=== PATIENT | female | born 1960 | race Caucasian/White ===

== ENCOUNTER 2020-12-09 15:23 | Outpatient (REF) | payer OTHER, SELFPAY ==
--- NOTE | ~2020-12-09 | XR_ITS ---
EXAMINATION: XR HAND, RIGHT CLINICAL INFORMATION: Right hand pain COMPARISON: Previous x-ray February 2017 TECHNIQUE: PA, lateral, and oblique views of the right hand. FINDINGS: Bone alignment is normal. No fracture or dislocation is seen. There is evidence of arthritis at the IP joints and first INTERMEDIATE joint with joint space narrowing and osteophyte formation. There are also small osteophytes at the fifth and first MCP joints. This is increased compared to February 2017 exam. Soft tissues are unremarkable. XR/XR hand RT min 3V IMPRESSION: Increasing osteoarthritis.
== END 2020-12-09 15:24 | disposition home or self-care (01) ==
LOC: HO.HOSX 15:23
PROVIDERS: Visit Provider Orthopaedic Surgery
DX: M79.641 Pain in right hand (principal); M19.041 Primary osteoarthritis, right hand; M18.11 Unilateral primary osteoarthritis of first carpometacarpal joint, right hand
CPT/HCPCS: 20600; 73130; J1020

== ENCOUNTER 2023-10-25 12:04 | Outpatient (REF) | payer OTHER, SELFPAY ==
--- NOTE | ~2023-10-25 | XR_ITS ---
EXAMINATION: XR CHEST CLINICAL INFORMATION: Chest pain. COMPARISON: Most recent chest CT dated 02/15/2015. TECHNIQUE: 2 views of the chest were obtained. FINDINGS: The lungs are clear. The cardiomediastinal silhouette is normal in size. There is no pleural effusion or pneumothorax. No acute osseous abnormality. XR/XR chest 2V IMPRESSION: No acute cardiopulmonary findings.
== END 2023-10-25 12:05 | disposition home or self-care (01) ==
LOC: HO.XRAY 12:04
PROVIDERS: PCP Internal Medicine Medical Oncology; Visit Provider Internal Medicine Medical Oncology
DX: R07.9 Chest pain, unspecified (principal)
CPT/HCPCS: 71046

== ENCOUNTER 2025-03-23 16:00 | Outpatient (REF) | payer OTHER, SELFPAY ==
--- OUTSIDE RECORDS SUMMARY | 2025-03-05 09:19 | XMS_ITS ---
Author Organization Benja Alicea III, MD Address [address] [place] [address] [place] [address] Care Team Providers Care Tile Layer Supervisor Name Role Phone Dr. Benja Alicea III Primary Care Provider [phone] REASON FOR VISIT Rx Request Medications Medication SIG (Take, Route, Fr equency, Duration) Notes Start Date End Date Status Wellbutrin SR 150 MG 1 tablet in the mor sridhar Orally Once a day for 90 days Active Social History Sex Assigned At : Social History Observation Description Sex Assigned At Female Encounters Encounter Location Date Provider Diagnosis Benja Alicea III, MD [address] [place] [address] [place] [address] 03/05/2025 Benja Alicea Lumbar radiculopathy M54.16 Assessments Encounter Date Diagnosis (ICD Code) Assessment Notes Treat ment Notes Treatment Clinical Notes 03/05/2025 Lumbar radiculopathy (ICD-10 - M54.16) She has undergone a second surgical procedure and the pain is improved. The pain is currently controlled and she is able to complete all of the tasks of daily life. Plan Of Treatment Medication Medication Name Sig Start Date Stop Date Notes Wellbutrin SR 150 MG 1 tablet in the mor sridhar Orally Once a day for 90 days Next Appt Details Provider Name:Benja Alicea , 07/03/2025 03:30:00 PM, [address] [place] [address] [place], [address], Progress Notes * Rodolfo DESOUZARalfB:1960 (64 yo F)Acc No.[id number]:03/05/2025 Patient: Bre GUERRA :1960 A ge:64 Y S ex:Female Address:[address] [place] [phone] * Refills Refill Wellbutrin SR Tablet Extended Release 12 Hour, 150 MG, Orally, 90, 1 tablet in the morning, Once a day, 90 days, Refills=3 * true * Date: Generated for Delmar cody/Genaro/Jessicaitting on: 0 03/23/2025 04:10 PM EDT
--- OUTSIDE RECORDS SUMMARY | 2025-03-07 09:22 | XMS_ITS ---
Author Organization Benja Alicea III, MD Address [address] [place] [address] [place] [address] Care Team Providers Care Electrical Engineering Professor Name Role Phone Dr. Benja Alicea III Primary Care Provider [phone] REASON FOR VISIT pt needs Wellbutrin XL Medications Medication SIG (Take, Route, Fr equency, Duration) Notes Start Date End Date Status Wellbutrin XL 150 MG 1 tablet in the mor sridhar Orally Once a day for 90 days 03/07/2025 Active Social History Sex Assigned At : Social History Observation Description Sex Assigned At Female Encounters Encounter Location Date Provider Diagnosis Benja Alicea III, MD [address] [place] [address] [place] [address] 03/07/2025 Benja Alicea Lumbar radiculopathy M54.16 Assessments Encounter Date Diagnosis (ICD Code) Assessment Notes Treat ment Notes Treatment Clinical Notes 03/07/2025 Lumbar radiculopathy (ICD-10 - M54.16) She has undergone a second surgical procedure and the pain is improved. The pain is currently controlled and she is able to complete all of the tasks of daily life. Plan Of Treatment Medication Medication Name Sig Start Date Stop Date Notes Wellbutrin SR 150 MG 1 tablet in the mor sridhar Orally Once a day Wellbutrin XL 150 MG 1 tablet in the mor sridhar Orally Once a day for 90 days 03/07/2025 Next Appt Details Provider Name:Benja Alicea , 07/03/2025 03:30:00 PM, [address] [place] [address] [address], [place], [address], Progress Notes * Sanjana DESOUZAFrancisca:1960 (64 yo F)Acc No.[id number]:03/07/2025 Patient: Bre GUERRA :1960 A ge:64 Y S ex:Female Address:[address] [place] [phone] * Refills Stop Wellbutrin SR Tablet Extended Release 12 Hour, 150 MG, Orally, 1 tablet in the morning, Once a day Start Wellbutrin XL Tablet Extended Release 24 Hour, 150 MG, Orally, 90 Tablet, 1 tablet in the morning, Once a day, 90 days, Refills=3 * true * Date: Generated for Delmar cody/Genaro/Jessicaitting on: 0 03/23/2025 04:10 PM EDT
--- OUTSIDE RECORDS SUMMARY | 2025-03-13 12:10 | XMS_ITS ---
Author Organization Benja Alicea III, MD Address [address] [place] [address] [place] [id number] Care Team Providers Care Cloth Neutralizer Name Role Phone Dr. Benja Alicea III Primary Care Provider [phone] REASON FOR VISIT wants Zepbound again Medications Medication SIG (Take, Route, Frequency, Duration) Notes Start Date End Date Status Zepbound 5 MG/0.5ML 0.5 mL Subcutaneous once a week for 30 days DX: obesity E 66.3 Auth approval from [facility] from 03/15/2025- 026 03/19/2025 03/14/2026 Active Mounjaro 5 MG/0.5ML 0.5ml once a week Subcutaneous once a week for 28 days 03/19/2025 02/18/2026 Active Social History Sex Assigned At : Social History Observation Description Sex Assigned At Female Encounters Encounter Location Date Provider Diagnosis Benja Alicea III, MD [address] [place] [address] [place] [id number] 03/13/2025 Benja Alicea Overweight E66.3 and Essential hypertension I10 Assessments Encounter Date Diagnosis (ICD Code) Assessment Notes Treat ment Notes Treatment Clinical Notes 03/13/2025 Overweight (ICD-10 - E66.3) She is losing weight steadily. No increase in the dose of zepbound was necessary today. But due to insurance she will be changed over to Wegovy at this time . She will be monitored closely. Her body mass index is now in the upper normal range. 03/13/2025 Essential hypertension (ICD-10 - I10) Her blood pressure today is 134/71 and no change in her regimen is needed. Plan Of Treatment Medication Medication Name Sig Start Date Stop Date Notes Wegovy 0.25 MG/0.5ML 0.5 mL Subcutaneous once a week 12/25/2024 04/24/2025 Zepbound 5 MG/0.5ML 0.5 mL Subcutaneous once a week for 30 days 03/19/2025 03/14/2026 DX: obesity E 66 .3 Auth approval from [facility] from 03/15/2025-03/15/2026 Mounjaro 5 MG/0.5ML 0.5ml once a week Subcutaneous once a week for 28 days 03/19/2025 02/18/2026 Next Appt Details Provider Name:Benja Lynsey Alicea , 07/03/2025 03:30:00 PM, [address] [place] [address] , [place] [address], [place], [address], Progress Notes * MARIAMASanjanaB:1960 (64 yo F)Acc No.[id number]:03/13/2025 Patient: Bre GUERRA :1960 A ge:64 Y S ex:Female Address:[address] [place] [phone] * Refills Stop Wegovy Solution Auto-injector, 0.25 MG/0.5ML, Subcutaneous, 0.5 mL, once a week unable to fill Zepbound Solution, 5 MG/0.5ML, Subcutaneous, 2 Milliliter, 0.5 mL, once a week, 30 days, Refills=11 Start Mounjaro Solution Auto-injector, 5 MG/0.5ML, Subcutaneous, 2 Milliliter, 0.5ml once a week, once a week, 28 days, Refills=11 * true * Date: Generated for Delmar cody/Genaro/Jessicaitting on: 0 03/23/2025 04:09 PM EDT
--- OUTSIDE RECORDS SUMMARY | 2025-03-19 07:25 | XMS_ITS ---
Author Organization Benja Alicea III, MD Address [address] [place] [address] [place] [address] Care Team Providers Care Enlisted Advisor Name Role Phone Dr. Benja Alicea III Primary Care Provider REASON FOR VISIT Needs call back from Social History Sex Assigned At : Social History Observation Description Sex Assigned At Female Encounters Encounter Location Date Provider Diagnosis Benja Alicea III, MD [address] [place] [address] [place] [address] 03/19/2025 Benja Alicea Plan Of Treatment Next Appt Details Provider Name:Benja Alicea , 07/03/2025 03:30:00 PM, [address] [place] [address] [place], [address], Progress Notes * Sanjana DESOUZAB:1960 (64 yo F)Acc No.[id number]:03/19/2025 Patient: Bre GUERRA :1960 A ge:64 Y S ex:Female Address:[address] [place], [place] [address] [address] * true * Date: Generated for Printi ng/Faxing/eTransmitting on: 0 03/23/2025 04:10 PM EDT
--- OUTSIDE RECORDS SUMMARY | 2025-03-22 10:39 | XMS_ITS ---
Author Organization Benja Alicea III, MD Address [address] [place] [address] [place] [address] Care Team Providers Care Rounder Hand Name Role Phone Dr. Benja Alicea III Primary Care Provider REASON FOR VISIT Rx request Medications Medication SIG (Take, Route, Frequency, Duration) Notes Start Date End Date Status Wellbutrin XL 150 MG 1 tablet in the morning Orally Once a day for 90 days 03/07/2025 Active Minoxidil 2.5 MG TAKE 1 TABLET BY MOUTH TWICE DAILY for 30 Active Zepbound 5 MG/0.5ML 0.5 mL Subcutaneous once a week for 30 days unable to fill due to insurance 03/19/2025 03/14/2026 Not-Taking lamoTRIgine 200 MG 1 tablet Orally Once a day for 90 days Active Albuterol Sulfate HFA 108 (90 Base) MCG/ACT two puffs Q 4 hours prn wheezing Inhalation every 4 hrs for 30 days 03/22/2025 Active Ciprofloxacin HCl 500 MG 1 tablet Orally twice a day for 10 days 03/22/2025 04/01/2025 Active Metoprolol Succinate ER 100 MG 1 tablet Orally Once a day Active Linzess 290 MCG TAKE 1 CAPSULE BY MOUTH DAILY Oral Active Trulance 3 MG TAKE 1 TABLET BY MOUTH DAILY Oral Active Vilazodone HCl 20 MG 1 tablet with food Orally Once a day 11/24/2024 Active Pantoprazole Sodium 40 MG TAKE 1 TABLET BY MOUTH TWICE DAILY Active Atorvastatin Calcium 40 MG TAKE 1 TABLET BY MOUTH DAILY Active Trulance 3 MG 1 tablet Orally Once a day 09/08/2024 Active tiZANidine HCl 2 MG 1 tablet Orally every 6 hrs as needed 04/18/2024 Active Mounjaro 5 MG/0.5ML 0.5ml once a week Subcutaneous once a week for 28 days 03/19/2025 02/18/2026 Active Social History Sex Assigned At : Social History Observation Description Sex Assigned At Female Encounters Encounter Location Date Provider Diagnosis Benja Alicea III, MD [address] [place] [address] [address] [place] [address] 03/22/2025 Benja Alicea Chronic cough R05.3 Assessments Encounter Date Diagnosis (ICD Code) Assessment Notes Treatment Notes Treatment Clinical Notes 03/22/2025 Chronic cough (ICD-10 - R05.3) Plan Of Treatment Medication Medication Name Sig Start Date Stop Date Notes Linzess 290 MCG TAKE 1 CAPSULE BY MO UTH DAILY Albuterol Sulfate HFA 108 (9 0 Base) MCG/ACT two puffs Q 4 hours prn wheezing Inhalation every 4 hrs for 30 days 03/22/2025 Ciprofloxacin HCl 500 MG 1 tablet Orally twice a day for 10 days 03/22/2025 04/01/2025 Pending Test Test Name Order Date XR CHEST 2 VIEW PA & LAT 03/22/2025 Next Appt Details Provider Name:Benja Alicea , 07/03/2025 03:30:00 PM, [address] [place] [address] [address], [place], [address], Progress Notes * Luis DESOUZA:1960 (64 yo F)Acc No.[id number]:03/22/2025 Patient: Chele MIGUELINAROHITHBre :1960 A ge:64 Y S ex:Female Address:[address] [place] [phone] * Refills Start Ciprofloxacin HCl Tablet, 500 MG, Orally, 20 Tablet, 1 tablet, twice a day, 10 days, Refills=0 Start Albuterol Sulfate HFA Aerosol Solution, 108 (90 Base) MCG/ACT, Inhalation, 6.7 Inhaler, two puffs Q 4 hours prn wheezing, every 4 hrs, 30 days, Refills=1 Stop Linzess Capsule, 290 MCG, TAKE 1 CAPSULE BY MOUTH DAILY Subjective: * Chief Complaints: * R x request * Medical History: * Surgical History: * Hospitalization/Major Diagno stic Procedure: * Medications: T akingVilazodone HCl 20 MG Tablet 1 tablet with food Orally Once a day Pantoprazole Sodium 40 MG Tablet Delayed Release TAKE 1 TABLET BY MOUTH TWICE DAILY Trulance 3 MG Tablet 1 tablet Orally Once a day tiZANidine HCl 2 MG Tablet 1 tablet Orally every 6 hrs as needed Atorvastatin Calcium 40 MG Tablet TAKE 1 TABLET BY MOUTH DAILY Metoprolol Succinate ER 100 MG Tablet Extended Release 24 Hour 1 tablet Orally Once a day Linzess 290 MCG Capsule TAKE 1 CAPSULE BY MOUTH DAILY Oral Trulance 3 MG Tablet TAKE 1 TABLET BY MOUTH DAILY Oral lamoTRIgine 200 MG Tablet 1 tablet Orally Once a day Wellbutrin XL 150 MG Tablet Extended Release 24 Hour 1 tablet in the morning Orally Once a day Minoxidil 2.5 MG Tablet TAKE 1 TABLET BY MOUTH TWICE DAILY Mounjaro 5 MG/0.5ML Solution Auto-injector 0.5ml once a week Subcutaneous once a week , stop date 02/18/2026Taking Vilazodone HCl 20 MG Tablet 1 tablet with food Orally Once a day Taking Pantoprazole Sodium 40 MG Tablet Delayed Release TAKE 1 TABLET BY MOUTH TWICE DAILY Taking Trulance 3 MG Tablet 1 tablet Orally Once a day Taking tiZANidine HCl 2 MG Tablet 1 tablet Orally every 6 hrs as needed Taking Atorvastatin Calcium 40 MG Tablet TAKE 1 TABLET BY MOUTH DAILY Taking Metoprolol Succinate ER 100 MG Tablet Extended Release 24 Hour 1 tablet Orally Once a day Taking Linzess 290 MCG Capsule TAKE 1 CAPSULE BY MOUTH DAILY Oral Taking Trulance 3 MG Tablet TAKE 1 TABLET BY MOUTH DAILY Oral Taking lamoTRIgine 200 MG Tablet 1 tablet Orally Once a day Taking Wellbutrin XL 150 MG Tablet Extended Release 24 Hour 1 tablet in the morning Orally Once a day Taking Minoxidil 2.5 MG Tablet TAKE 1 TABLET BY MOUTH TWICE DAILY Taking Mounjaro 5 MG/0.5ML Solution Auto-injector 0.5ml once a week Subcutaneous once a week , stop date 02/18/2026Not-Taking/PRNZepbound 5 MG/0.5ML Solution 0.5 mL Subcutaneous once a week , stop date 03/14/2026, Notes to Pharmacist: unable to fill due to insuranceNot-Taking/PRN Zepbound 5 MG/0.5ML Solution 0.5 mL Subcutaneous once a week , stop date 03/14/2026, Notes to Pharmacist: unable to fill due to insuranceDiscontinuedLinzess 290 MCG Capsule TAKE 1 CAPSULE BY MOUTH DAILY Discontinued Linzess 290 MCG Capsule TAKE 1 CAPSULE BY MOUTH DAILY Objective: * Vitals: * Physical Examination: Assessment: * Assessment: 1. C hronic cough - R05.3 Plan: * Treatment: 2. O thers Start Ciprofloxacin HCl Tablet, 500 MG, 1 tablet, Orally, twice a day, 10 days, 20 Tablet, Refills 0; S tart Albuterol Sulfate HFA Aerosol Solution, 108 (90 Base) MCG/ACT, two puffs Q 4 hours prn wheezing, Inhalation, every 4 hrs, 30 days, 6.7 Inhaler, Refills 1; S top Linzess Capsule, 290 MCG, TAKE 1 CAPSULE BY MOUTH DAILY. * Procedure Codes: * true * Date: Generated for Delmar cody/Genaro/Jessicaitting on: 0 03/23/2025 04:10 PM EDT
--- NOTE | ~2025-03-23 | XR_ITS ---
EXAMINATION: XR CHEST CLINICAL INFORMATION: CHRONIC COUGH COMPARISON: 10/25/2023 TECHNIQUE: 2 views of the chest were obtained. FINDINGS: The cardiac, hilar, and mediastinal contours are normal. The lungs are clear bilaterally. There is no pneumothorax or pleural effusion. There is no focal osseous or soft tissue abnormality. Surgical anchor in the right humeral head. Mild degenerative changes throughout the spine. XR/XR chest 2V IMPRESSION: No active pulmonary disease. Electronically signed by: Jerry Vallejo MD 03/23/2025 04:32 PM EDT
--- OUTSIDE RECORDS SUMMARY | 2025-03-23 16:10 | XMS_ITS | Encounter Summary ---
Author Organization [facility] Address [address] [place] [address] Phone Care Team Providers Care Claim Benefit Specialist Name Role Phone Benja Alicea MD Primary Care Provider [phone] Reason for Referral * Consultation (Within 1 month) - Closed Specialty Diagnoses / Procedures Referred By Contac t Referred To Contact Rheumatology Diagnoses Pain of right thumb System, Provider Not In, PhD [address] [address] Referral ID Status Reason Start Date Expiration Date Visits Re quested Visits Authorized [id number] Closed 03/22/2017 03/23/2018 99 99 Encounter Details Date Type Department Care Team (Latest Contact Info) Description 03/22/2017 Transcribe Orders [facility] Rheumatology [address], [address], [address] [place] [address] Maycol Em MD [address] [place] [address] Drive [address] [place] [address] Pain of right thumb (Primary Dx) Social History Tobacco Use Types Packs/Day Years Used Date Smoking Tobacco: Never Comments Unknown Sex and Gender Information Value Date Recorded Sex Assigned at Not on file Legal Sex Female 7:18 PM EST Gender Identity Not on file Sexual Orientation Not on file documented as of this encounter Plan of Treatment Scheduled Referrals Name Type Priority Associated Diagnoses Order Schedule Ambulatory referral to [facility] Rheumatology Outpatient Referral Routine Pain of right thumb Ordered: 03/22/2017 documented as of this encounter Visit Diagnoses Diagnosis Pain of right thumb- Primary documented in this encounter Care Teams Claim Benefit Specialist Relationship Specialty Start Date End Date Benja Alicea MD [address] [place] [address] [place] [address] PCP - General 11/06/14 documented as of this encounter Additional Source Comments The information contained in this document represents components of the legal health record. It is not the complete legal health record.[facility]
--- OUTSIDE RECORDS SUMMARY | 2025-03-23 16:10 | XMS_ITS | Patient Health Record ---
Author Organization Benja Alicea III, MD Address [address] [place] [address] [place] [address] Care Team Providers Care Conveyor Monitor Name Role Phone Dr. Benja Alicea III Primary Care Provider Allergies Allergen (clinical drug ingredient) Drug/Non Drug Allergy documented on EMR Reaction Allergy Type Onset Date Status amoxicillin Amoxicillin Unknown Drug Allergy Act edna acetaminophen / oxycodone Percocet Unknown Drug Allergy Active Results Component Value Reference Range Notes URINE DIP STICK Reviewed date:03/28/2024 04:35:35 PM Interpretation: Performing Lab: Notes/Report: SG 1.010 1.005 - 1.025 pH 6.0 5.0 - 9.0 AVINASH 70+ Negative - NIT Negative Negative - PRO 15 Negative - Trace GLU Negative Negative - KET 5 Negative - UBG 0.2 0.1 - 1.8 KENNETH Negative 0.2 - 1.3 BLD Positive Negative - Menstrating No Reason For Referral No Information Medications Medication SIG (Take, Route, Frequency, Duration) [...] fill due to insurance 03/19/2025 03/14/2026 Not-Taking Vilazodone HCl 20 MG 1 tablet with food Orally Once a day 11/24/2024 Active Mounjaro 5 MG/0.5ML 0.5ml once a week Subcutaneous once a week for 28 days 03/19/2025 02/18/2026 Active Pantoprazole Sodium 40 MG TAKE 1 TABLET BY MOUTH TWICE DAILY Active Ciprofloxacin HCl 500 MG 1 tablet Orally twice a day for 10 days 03/22/2025 04/01/2025 Active Metoprolol Succinate ER 100 MG 1 tablet Orally Once a day Active Linzess 290 MCG TAKE 1 CAPSULE BY MOUTH DAILY Oral Active Trulance 3 MG TAKE 1 TABLET BY MOUTH DAILY Oral Active lamoTRIgine 200 MG 1 tablet Orally Once a day for 90 days Active Trulance 3 MG 1 tablet Orally Once a day 09/08/2024 Active tiZANidine HCl 2 MG 1 tablet Orally every 6 hrs as needed 04/18/2024 Active Albuterol Sulfate HFA 108 (90 Base) MCG/ACT two puffs Q 4 hours prn wheezing Inhalation every 4 hrs for 30 days 03/22/2025 Active Atorvastatin Calcium 40 MG TAKE 1 TABLET BY MOUTH DAILY Active Social History Tobacco Use: Social History Observation Description Date Details (start date - stop date) Never Smoker NA - NA Sex Assigned At : Social History Observation Description Sex Assigned At Female Tobacco Use/Smoking Question Answer Notes Patient is a nonsmoker Additional Findings: Tobacco Non-User Aggressive non-smoker Alcohol Screen Question Answer Notes Did you have a drink contain ing alcohol in the past year? Yes How often did you have a dri nk containing alcohol in the past year? 4 or more times a week (4 points) How many drinks did you have on a typical day when you were drinking in the past year? 1 or 2 drinks (0 point) How often did you have 6 or more drinks on one occasion in the past year? Never (0 point) Points 4 Interpretation Positive Problems Problem Type SNOMED Code ICD Code Onset Dates Problem Status W/U Status Risk Notes Problem 61773331 Hyperlipidemia (E78.5) Active confirmed She was continued on her current regimen. Comprehensive blood work fasting lipid profile has been ordered. Problem 468446050 Overweight (E66.3) Active confirmed She is losing weight steadily. No increase in the dose of zepbound was necessary today. But due to insurance she will be changed over to Wegovy at this time . She will be monitored closely. Her body mass index is now in the upper normal range. Problem 095168255 Lumbar radiculopathy (M54.16) Active confirmed She has undergone a second surgical procedure and the pain is improved. The pain is currently controlled and she is able to complete all of the tasks of daily life. Problem 02215508 Anxiety (F41.9) Active confirmed This has improved substantially. She is sleeping better and is back at work. Problem 25726221 Essential hypertension (I10) Active confirmed Her blood pressure today is 134/71 and no change in her regimen is needed. Problem 873649889 Rosacea (L71.9) Active confirmed She was given a course of topical brimonidine Problem 05854105 Depressive disorder, not elsewhere classified (F32.9) Active confirmed The trazodone has been ineffective lately. I have changed her to venlafaxine. She is also taking lamotrigine. Problem Sleep apnea (99396634) Sleep apnea (G47.30) Active confirmed Her sleep study was reviewed. She no longer complains of daytime somnolence. She is now using CPAP and seems not to need it Problem 939699489 Cervical spondylosis without myelopathy (M47.812) Active confirmed Neck pain is mild and intermittent and does not affect her ability to conduct daily life. Problem 656480271 Hair loss (L65.9) Active confirmed She is quite happy with the results of the oral minoxidil which was no change today. Her blood pressure has been stable. Problem 61073929 Esophagitis (K20.90) Active confirmed She will continue on the current regimen for another week until we have a follow-up visit. She is improving. Problem 649279657 Weight loss counseling, encounter for (Z71.3) Active confirmed She was continued on the injections once a week. Her body mass index is in the upper normal range and she will soon be able to stop this medication. Vital Signs Heart Rate 86 /min 12/25/2024 Temperature 98.4 degrees Fahrenheit 12/25/2024 Blood pressure diastolic 81 mm Hg 12/25/2024 Height 63 in 12/25/2024 Blood pressure systolic 139 mm Hg 12/25/2024 Weight 127 lbs 12/25/2024 BMI 22.49 kg/m2 12/25/2024 Encounters Encounter Location Date Provider Diagnosis Benja Alicea III, MD [address] [place] [address] [place] [address] 09/01/2024 Benja Alicea Lumbar radiculopathy M54.16 ; Weight loss counseling, encounter for Z71.3 ; Hyperlipidemia E78.5 ; Overweight E66.3 ; Depressive disorder, not elsewhere classified F32.9 and Cervical spondylosis without myelopathy M47.812 Benja Alicea III, MD [address] [place] [address] 03/28/2024 Benja Alicea Lumbar radiculopathy M54.16 ; Hematuria R31.9 ; Overweight E66.3 ; Cervical spondylosis without myelopathy M47.812 ; Sleep apnea G47.30 and Hiatal hernia K44.9 Benja Alicea III, MD [address] [place] [address] [place] [address] 05/10/2024 Benja [place]erne Lumbar radiculopathy M54.16 ; Overweight E66.3 ; Essential hypertension I10 and Sleep apnea G47.30 Benja Alicea III, MD [address] [place] [address] 06/08/2024 Benja [place] Lumbar radiculopathy M54.16 ; Essential hypertension I10 ; Hyperlipidemia E78.5 ; Depressive disorder, not elsewhere classified F32.9 and Weight loss counseling, encounter for Z71.3 Benja Alicea III, MD [address] [place] [address] [place] [address] 07/18/2024 Benja [place] Lumbar radiculopathy M54.16 ; Hair loss L65.9 ; Sleep apnea G47.30 ; Essential hypertension I10 and Anxiety F41.9 Benja Alicea III, MD [address] [place] [address] 10/20/2024 Benja Alicea Lumbar radiculopathy M54.16 ; Hyperlipidemia E78.5 ; Hair loss L65.9 ; Weight loss R63.4 ; Sleep apnea G47.30 and Depressive disorder, not elsewhere classified F32.9 Benja Alicea III, MD [address] [place] [address] [place] [address] 12/25/2024 Benja [place] Lumbar radiculopathy M54.16 ; Essential hypertension I10 ; Overweight E66.3 ; Hyperlipidemia E78.5 and Sleep apnea G47.30 Benja Alicea III, MD [address] [place] [address] 02/22/2025 Benja Alicea III, MD [address] [facility] [place] [address] 03/29/2024 Benja Alicea III, MD [address] [facility] [place] [address] 04/04/2024 Benja Alicea III, MD [address] [facility] [place] [address] 04/18/2024 Benja Alicea III, MD [address] [facility] [place] [address] 04/18/2024 Benja Alicea III, MD [address] [facility] [place] [address] 06/07/2024 Benja Alicea III, MD [address] [facility] [place] [address] 06/13/2024 Benja Alicea III, MD [address] [facility] [place] [address] 07/18/2024 Benja Alicea III, MD [address] [facility] [place] [address] 07/24/2024 Benja Alicea III, MD [address] [facility] [place] [address] 08/08/2024 Benja Alicea III, MD [address] [facility] [place] [address] 08/22/2024 Benja Alicea III, MD [address] [facility] [place] [address] 08/22/2024 Benja Alicea III, MD [address] [facility] [place] [address] 09/08/2024 Benja Alicea III, MD [address] [facility] [place] [address] 09/08/2024 Benja Alicea III, MD [address] [place] [address] 09/19/2024 Benja Alicea III, MD [address] [place] [address] [place] [address] 09/22/2024 Benja Alicea III, MD [address] [place] [address] [place] [address] 10/12/2024 Benja Alicea III, MD [address] [place] [address] [place] [address] 10/30/2024 Benja Alicea III, MD [address] [place] [address] [place] [address] 11/23/2024 Benja Alicea III, MD [address] [place] [address] [place] [address] 11/24/2024 Benja Alicea III, MD [address] [place] [address] [place] [address] 02/06/2025 Benja Alicea III, MD [address] [place] [address] [place] [address] 03/05/2025 Benja Alicea Lumbar radiculopathy M54.16 Benja Alicea III, MD [address] [place] [address] [place] [address] 03/07/2025 Benja Alicea Lumbar radiculopathy M54.16 Benja Alicea III, MD [address] [place] [address] [place] [address] 03/13/2025 Benja Alicea Overweight E66.3 and Essential hypertension I10 Benja Alicea III, MD [address] [place] [address] [place] [address] 03/19/2025 Benja Alicea III, MD [address] [place] [address] [place] [address] 03/22/2025 Benja Alicea Chronic cough R05.3 Assessments Encounter Date Diagnosis (ICD Code) Assessment Notes Treat ment Notes Treatment Clinical Notes 09/01/2024 Lumbar radiculopathy (ICD-10 - M54.16) She has undergone a second surgical procedure and the pain is improved but she is fatigued. The pain is currently controlled and she is able to complete all of the tasks of daily life. 09/01/2024 Weight loss counseling, encounter for (ICD-10 - Z71.3) She was continued on the injections once a week. Her body mass index is in the upper normal range and she will soon be able to stop this medication. 03/28/2024 Hematuria (ICD-10 - R31.9) She is being evaluated by urology. She will have urine cytology and cystoscopy. Results of the CAT scan will be obtained. 03/28/2024 Lumbar radiculopathy (ICD-10 - M54.16) She has undergone a second surgical procedure and the pain is improved but she is fatigued. The pain is currently controlled and she is able to complete all of the tasks of daily life. 05/10/2024 Overweight (ICD-10 - E66.3) She is losing weight steadily. No increase in the dose of zepbound was necessary today. She will be monitored closely. Her body mass index is now in the upper normal range. 05/10/2024 Lumbar radiculopathy (ICD-10 - M54.16) She has undergone a second surgical procedure and the pain is improved but she is fatigued. The pain is currently controlled and she is able to complete all of the tasks of daily life. 06/08/2024 Lumbar radiculopathy (ICD-10 - M54.16) She has undergone a second surgical procedure and the pain is improved but she is fatigued. The pain is currently controlled and she is able to complete all of the tasks of daily life. 06/08/2024 Essential hypertension (ICD-10 - I10) Her blood pressure today is 134/71 and no change in her regimen is needed. 07/18/2024 Lumbar radiculopathy (ICD-10 - M54.16) She has undergone a second surgical procedure and the pain is improved but she is fatigued. The pain is currently controlled and she is able to complete all of the tasks of daily life. 07/18/2024 Hair loss (ICD-10 - L65.9) Her concern today was that she is losing hair. She is seeing here in the same kin on the bottom of the bathtub. Examining her scalp today the follicle count seem normal. Alopecia was not present normal bald spots. There are no areas of Liotta. I have discussed with her the use of minoxidil. Blood work will be done to check her thyroid function. 10/20/2024 Hyperlipidemia (ICD-10 - E78.5) She was continued on her current regimen. Comprehensive blood work fasting lipid profile has been ordered. 10/20/2024 Lumbar radiculopathy (ICD-10 - M54.16) She has undergone a second surgical procedure and the pain is improved. The pain is currently controlled and she is able to complete all of the tasks of daily life. 12/25/2024 Lumbar radiculopathy (ICD-10 - M54.16) She has undergone a second surgical procedure and the pain is improved. The pain is currently controlled and she is able to complete all of the tasks of daily life. 12/25/2024 Essential hypertension (ICD-10 - I10) Her blood pressure today is 134/71 and no change in her regimen is needed. 03/05/2025 Lumbar radiculopathy (ICD-10 - M54.16) She has undergone a second surgical procedure and the pain is improved. The pain is currently controlled and she is able to complete all of the tasks of daily life. 03/07/2025 Lumbar radiculopathy (ICD-10 - M54.16) She has undergone a second surgical procedure and the pain is improved. The pain is currently controlled and she is able to complete all of the tasks of daily life. 03/13/2025 Overweight (ICD-10 - E66.3) She is losing weight steadily. No increase in the dose of zepbound was necessary today. But due to insurance she will be changed over to Wegovy at this time . She will be monitored closely. Her body mass index is now in the upper normal range. 03/22/2025 Chronic cough (ICD-1 0 - R05.3) 09/01/2024 Hyperlipidemia (ICD-10 - E78.5) Comprehensive blood work is pending at this time and will be reviewed when it is available. 03/28/2024 Overweight (ICD-10 - E66.3) She is losing weight steadily. No increase in the dose of zepbound was necessary today. She will be monitored closely.She has lost 14 pounds in her body mass index is in the overweight range. 05/10/2024 Essential hypertension (ICD-10 - I10) Her blood pressure today is 134/71 and no change in her regimen is needed. 06/08/2024 Hyperlipidemia (ICD-10 - E78.5) Comprehensive blood work is pending at this time and will be reviewed when it is available. 07/18/2024 Sleep apnea (ICD-10 - G47.30) Her sleep study was reviewed. She no longer complains of daytime somnolence. She is now using CPAP and seems not to need it 10/20/2024 Hair loss (ICD-10 - L65.9) She is quite happy with the results of the oral minoxidil which was no change today. Her blood pressure has been stable. 12/25/2024 Overweight (ICD-10 - E66.3) She is losing [...] no change in her regimen is needed. 09/01/2024 Overweight (ICD-10 - E66.3) She is losing weight steadily. No increase in the dose of zepbound was necessary today. She will be monitored closely. Her body mass index is now in the upper normal range. 03/28/2024 Cervical spondylosis without myelopathy (ICD-10 - M47.812) Neck pain is mild and intermittent and does not affect her ability to conduct daily life. 05/10/2024 Sleep apnea (ICD-10 - G47.30) Her sleep study was reviewed. She no longer complains of daytime somnolence. She is now using CPAP and seems not to need it 06/08/2024 Depressive disorder, not elsewhere classified (ICD-10 - F32.9) The trazodone has been ineffective lately. I have changed her to venlafaxine. She is also taking lamotrigine. 07/18/2024 Essential hypertension (ICD-10 - I10) Her blood pressure today is 134/71 and no change in her regimen is needed. 10/20/2024 Weight loss (ICD-10 - R63.4) She now weighs 127 pounds, body mass index 22.49. He is using Zepbound. We began to discuss how to withdraw the medication from her regimen. 12/25/2024 Hyperlipidemia (ICD-10 - E78.5) She was continued on her current regimen. Comprehensive blood work fasting lipid profile has been ordered. 09/01/2024 Depressive disorder, not elsewhere classified (ICD-10 - F32.9) The trazodone has been ineffective lately. I have changed her to venlafaxine. She is also taking lamotrigine. 03/28/2024 Sleep apnea (ICD-10 - G47.30) Her sleep study was reviewed. She no longer complains of daytime somnolence. She is now using CPAP and seems not to need it 06/08/2024 Weight loss counseling, encounter for (ICD-10 - Z71.3) She will continue on the current dose of medication for a couple of months and then we will discuss terminating. 07/18/2024 Anxiety (ICD-10 - F41.9) This has improved substantially. She is sleeping better and is back at work. 10/20/2024 Sleep apnea (ICD-10 - G47.30) Her sleep study was reviewed. She no longer complains of daytime somnolence. She is now using CPAP and seems not to need it 12/25/2024 Sleep apnea (ICD-10 - G47.30) Her sleep study was reviewed. She no longer complains of daytime somnolence. She is now using CPAP and seems not to need it 09/01/2024 Cervical spondylosis without myelopathy (ICD-10 - M47.812) Neck pain is mild and intermittent and does not affect her ability to conduct daily life. 03/28/2024 Hiatal hernia (ICD-1 0 - K44.9) Control of her epigastric discomfort and reflux symptoms is not yet adequate. She is interested in a surgical solution 10/20/2024 Depressive disorder, not elsewhere classified (ICD-10 - F32.9) The trazodone has been ineffective lately. I have changed her to venlafaxine. She is also taking lamotrigine. Plan Of Treatment Pending Test Test Name Order Date PROFILE, FASTING (COMPREHENSIVE METABOLI C) 10/20/2024 PROFILE, FASTING (COMPREHENSIVE METABOLI C) 09/09/2020 PROFILE, FASTING (COMPREHENSIVE METABOLI C) 10/18/2019 PROFILE, FASTING (COMPREHENSIVE METABOLI C) 08/15/2021 PROFILE, FASTING (COMPREHENSIVE METABOLI C) 01/10/2021 PROFILE, FASTING (COMPREHENSIVE METABOLI C) 08/02/2023 PROFILE, FASTING (COMPREHENSIVE METABOLI C) 08/11/2017 PROFILE, FASTING (COMPREHENSIVE METABOLI C) 08/25/2019 PROFILE, FASTING (COMPREHENSIVE METABOLI C) 06/12/2022 PROFILE, FASTING (COMPREHENSIVE METABOLI C) 10/21/2020 PROFILE, FASTING (COMPREHENSIVE METABOLI C) 12/22/2021 PROFILE, FASTING (COMPREHENSIVE METABOLI C) 01/12/2024 PROFILE, RANDOM (COMPREHENSIVE METABOLIC ) 08/07/2021 URIC ACID 08/11/2017 LIPID PANEL 06/12/2022 LIPID PANEL 10/21/2020 LIPID PANEL 12/22/2021 LIPID PANEL 08/11/2017 LIPID PANEL 09/09/2020 LIPID PANEL 10/18/2019 LIPID PANEL 07/24/2021 LIPID PANEL 07/22/2020 LIPID PANEL 08/25/2019 GGT 08/07/2021 FREE T4 (FT4) 11/18/2020 TSH (THYROID STIMULATING HORMONE) 2023 TSH (THYROID STIMULATING HORMONE) 2021 TSH (THYROID STIMULATING HORMONE) 2021 TSH (THYROID STIMULATING HORMONE) 2023 TSH (THYROID STIMULATING HORMONE) 2020 CBC w DIFF 11/18/2020 CBC w DIFF 08/25/2019 CBC w DIFF 10/20/2024 CBC w DIFF 10/21/2020 CBC w DIFF 12/22/2021 CBC w DIFF 01/12/2024 CBC w DIFF 08/11/2017 CBC w DIFF 06/12/2022 CBC w DIFF 08/07/2021 CBC w DIFF 01/10/2021 CBC w DIFF 09/09/2020 CBC w DIFF 10/18/2019 SED RATE (ESR) 11/18/2020 SED RATE (ESR) 01/12/2024 SED RATE (ESR) 08/07/2021 MERCURY BLOOD 04/12/2018 LEAD,VENOUS 04/12/2018 CT BRAIN WITH CONTRAST 11/16/2016 XR CHEST 2 VIEW PA & LAT 03/22/2025 XR CHEST 2 VIEW PA & LAT 10/25/2023 XR GI SERIES 01/27/2019 BONE DENSITY DEXA 06/11/2020 BONE DENSITY DEXA 07/22/2020 BONE DENSITY DEXA 06/12/2020 MAMMOGRAM DIGITAL BILATERAL SCREEN 01/02 Sleep Study - Diagnostic 04/09/2016 EEG 07/04/2018 CBC WITH AUTO DIFF 08/02/2023 SARS COV2 RNA RT PCR 06/24/2020 SARS COV2 IGG 11/22/2019 Lipid Panel 08/02/2023 Lipid Panel 10/20/2024 Lipid Panel 08/15/2021 Lipid Panel 01/12/2024 Lipid Panel 01/10/2021 Free T4 (Free Thyroxine) 01/12/2024 XR elbow RT 2V 01/15/2022 XR lumbar spine 2-3V 07/11/2021 XR sacrum coccyx min 2V 07/11/2021 XR sacrum coccyx min 2V 12/02/2020 XR elbow RT min 3V 01/30/2022 Next Appt Details Provider Name:Benja Alicea , 07/03/2025 03:30:00 PM, [address] [place] [address] , [address], [place], [address], Insurance Providers Payer Name Payer Address Payer Phone Subscriber Number Group Number Insured Name Patient Relationship to Insured Coverage Start Date Coverage End Date [facility] ([facility]) [address] [place] [id number] Bre Desouza Self - patient is the insured Medical (General) History Medical History History ICD Code depression intolerant of elavil 03/04 episode of delerium [facility] 03/04 neck pain - DJD anxiety and stress Labyrinthitis bilateral rotator cuff disease Surgical History Surgery Date(Month/Year) No history right knee 12/02/21 Hospitalization History Reason Date(Month/Year) No history
--- OUTSIDE RECORDS SUMMARY | 2025-03-23 16:10 | XMS_ITS | Clinical Summary ---
Author Organization [facility] Address [address] [place] [id number] Phone Care Team Providers Care Relationship Banker Name Role Phone Benja Alicea MD Primary Care Provider [phone] Allergies Active Allergy Reactions Criticality Noted Date Comments Oxycodone-Acetaminophen Vomiting 03/25/2017 Medications lamoTRIgine (LAMICTAL) 100 MG tablet Take 100 mg by mouth daily. Active omeprazole (PRILOSEC) 20 MG capsule Take 20 mg by mouth daily. Active linaclotide (LINZESS) 145 mcg Cap Take 145 mcg by mouth daily. Active bisacodyl (DULCOLAX) [address] 10 mg rectally daily. Active predniSONE (DELTASONE) 5 MG tablet Take 3 tablets (15 mg total) by mouth daily. 3 pills for 4 days, 2 pills for 4 days, 1 pills for 4 days then stop 24 tablet 7 Active diclofenac sodium (VOLTAREN) 1 % Gel Apply 4 g topically 4 (four) times a day as needed (pain). 1 Tube 1 7 Active Active Problems Problem Noted Date Diagnosed Date Seasonal allergies 08/04/2013 Overview (08/18/2014): Seasonal allergy Social History Tobacco Use Types Packs/Day Years Used Date Smoking Tobacco: Never Smokeless Tobacco: Never Alcohol Use Standard Drinks/Week Comments Yes 14 (1 standard drink = 0.6 oz pu re alcohol) Education Answer Date Recorded Are you interested in more education? Not on sawyer e 10/22/2022 Are you concerned about learning? Not on file 10/22/2022 No 10/22/2022 No 10/22/2022 Digital Access Answer Date Recorded No 11/23/2022 No 11/23/2022 No 11/23/2022 Reliable internet access at home? Not on file 11/23/2022 Device with a working camera? Not on file Comments Unknown Sex and Gender Information Value Date Recorded Sex Assigned at Not on file Legal Sex Female 7:18 PM EST Gender Identity Not on file Sexual Orientation Not on file Last Filed Vital Signs Vital Sign Reading Time Taken Comments Blood Pressure 170/90 06/14/2017 11:21 AM EST Pulse 65 06/14/2017 11:21 AM EST Temperature 36.9 C (98.4 F) 06/14/2017 11:21 AM EST Respiratory Rate - - Oxygen Saturation 98% 06/14/2017 11:22 AM EST Inhaled Oxygen Concentration - - Weight 68.9 kg (152 lb) 06/14/2017 11:21 AM EST Height 157.5 cm (5' 2 ) 06/14/2017 11:21 AM EST Body Mass Index 27.8 06/14/2017 11:21 AM EST Plan of Treatment Health Maintenance Due Date Last Done Comments Adult Td,Tdap Booster 1960 LIPID PANEL 1960 DEPRESSION SCREENING 1971 HEPATITIS C SCREENING 1977 HIV ONE-TIME SCREENING (18-6 5 YEARS) 1977 MAMMOGRAM 1999 COLOGUARD 2004 COLONOSCOPY 2004 COLORECTAL CANCER SCREENING 2004 FIT TEST 2004 FOBT 2004 SIGMOIDOSCOPY 2004 VIRTUAL COLONOSCOPY 2004 PNEUMOCOCCAL VACCINES (50+ years) (1 of 1 - PCV) 2009 ZOSTER VACCINES (1 of 2) 2009 OSTEOPOROSIS SCREENING INITI AL (ONE-TIME) 2024 INFLUENZA VACCINE (#1) 2025 0, 03/27/2016 COVID-19 VACCINE (3 - 2024-2 6 season) 2025 09/04/2020, 08/08/2020 RSV VACCINE (1 - 1-dose 75+ series) 2034 SMOKING STATUS SCREENING (On ce After 26 Yrs) Completed 03/25/2017 HEPATITIS A VACCINES Aged Out No long er eligible based on patient's age to complete this topic HIB VACCINES Aged Out No longer eligi ble based on patient's age to complete this topic MENINGOCOCCAL VACCINES (ACWY) Aged Out No longer eligible based on patient's age to complete this topic MENINGOCOCCAL VACCINES (B) Aged Out N o longer eligible based on patient's age to complete this topic Medical Devices Not on file Insurance [facility] NAVIGATOR PPO [facility] TOTAL CHOICE INDEMNITY [facility] NAVIGATOR PPO [facility] TOTAL CHOICE INDEMNITY [facility] NAVIGATOR PPO Member Subscriber Plan / Payer ( fective 2013-Present) Name:Bre Desouza Relation to Subscriber:Self Name:Bre Desouza Payer ID:[id number] ([facility]) Type:PPO Address: [place] [phone] [facility] TOTAL CHOICE INDEMNITY [facility] NAVIGATOR PPO Member Subscriber Plan / Payer ( fective 2013-Present) Name:Bre Desouza Relation to Subscriber:Self Name:Bre Desouza S Payer ID:[id number] ([facility]) Type:PPO Address: [place] [phone] [employer] TOTAL CHOICE INDEMNITY [facility] NAVIGATOR PPO [employer] TOTAL CHOICE INDEMNITY [facility] NAVIGATOR PPO Member Subscriber Plan / Payer (Ef fective 2013-Present) Name:Bre Desouza Relation to Subscriber:Self Name:Bre Desouza Payer ID:[id number] ([facility]) Type:PPO Address: [facility] [address] [place] [phone] [facility] TOTAL CHOICE INDEMNITY [facility] NAVIGATOR PPO [place] [facility] TOTAL CHOICE INDEMNITY [facility] TOTAL CHOICE INDEMNITY [facility] NAVIGATOR PPO [facility] TOTAL CHOICE INDEMNITY Care Teams Relationship Banker Relationship Specialty Start Date End Date Benja Alicea MD [address] [place] [address] [place] [address] PCP - General 11/06/14 Additional Source Comments The information contained in this document represents components of the legal health record. It is not the complete legal health record.[facility]
--- OUTSIDE RECORDS SUMMARY | 2025-03-23 16:11 | XMS_ITS | Clinical Summary ---
Author Organization [address] Address [address] [place] [phone] Phone Care Team Providers Care Flyer Repairer Name Role Phone Benja Alicea MD Primary Care Provider [phone] Allergies Active Allergy Reactions Criticality Noted Date Comments Erythromycin Rash Low 11/18/2024 Oxycodone-Acetaminophen Vomiting 11/18/2024 Social History Tobacco Use Types Packs/Day Years Used Date Smoking Tobacco: Never Tobacco Cessation:Counseling Given: Not Answered Alcohol Use Standard Drinks/Week Comments Yes 0 (1 standard drink = 0.6 oz pur e alcohol) 4 glasses of wine /night PHQ-2 Answer Date Recorded PHQ-2 Total Score 0 11/18/2024 Interpersonal Safety Answer Date Record ed Is there anyone in your life that is hurting or threatening you in anyway? no 11/18/2024 Physical Indicators of Abuse No evidence of phys ical abuse 11/18/2024 Comments Unknown Sex and Gender Information Value Date Recorded Sex Assigned at Not on file Legal Sex Female 2:13 PM EDT Gender Identity Not on file Sexual Orientation Not on file Last Filed Vital Signs Vital Sign Reading Time Taken Comments Blood Pressure 147/81 11/18/2024 2:34 PM EDT Pulse 102 11/18/2024 2:34 PM EDT Temperature 36.7 C (98 F) 11/18/2024 2:34 PM EDT Respiratory Rate 18 11/18/2024 2:33 PM EDT Oxygen Saturation 99% 11/18/2024 2:34 PM EDT Inhaled Oxygen Concentration - - Weight 57.6 kg (127 lb) 11/18/2024 2:33 PM EDT Height - - Body Mass Index - - Plan of Treatment Health Maintenance Due Date Last Done Comments HIV screening 1972 Hepatitis C screening 1977 Tetanus adult (Td q 10,TDAP once) 1979 Lipid disorder screening 1999 Colon cancer screening, Colonoscopy 2004 Pneumococcal Vaccine (50+ years) (1 of 1 - PCV) 2009 Shingles vaccine (Shingrix) (1 of 2 - Shingrix (RZV) 2 Dose Standard Series) 2009 Osteoporosis screening (bone density) 2024 Influenza vaccine 01/26/2025 03/28/2020 Covid-19 vaccine series ( season) 2025 05/15/2021, 09/04/2020, 08/07/2020 Breast cancer screening 06/05/2026 06/05/20, 06/05/2024 Diabetes screening 11/19/2027 11/18/2024 RSV Immunization (1 - 1-dose 75+ series) 2034 Cervical cancer screening Discontinued Meningococcal B Vaccine Aged Out No l onger eligible based on patient's age to complete this topic Meningococcal Vaccine Aged Out No misty breonna eligible based on patient's age to complete this topic Procedures Procedure Name Priority Date/Time Associated Diagnosis Comments COMPREHENSIVE METABOLIC PANEL Routine 11/18/2024 3:23 PM EDT from Last 3 Months or Most Recently Relevant to Health Maintenance Results * (ABNORMAL) Comprehensive metabolic panel (11/18/2024 3:23 PM EDT) Sodium 140 136 - 145 mmol/L 11/18/2024 4:11 PM [facility] Potassium 3.8 3.5 - 5.1 mmol/L 11/18/2024 4:11 PM [facility] Chloride 108(H) 98 - 107 mmol/L 11/18/2024 4:11 PM [facility] CO2 24 21 - 32 mmol/L 11/18/2024 4:11 PM [facility] Anion Gap 8 5 - 15 mmol/L 11/18/2024 4:11 PM [facility] Glucose 91 65 - 110 mg/dL 11/18/2024 4:11 PM [facility] Comment: Non-fastin-110 mg/dL Fasting (minimum 6 hrs): 65-99 mg/dL BUN 19(H) 7 - 18 mg/dL 11/18/2024 4:11 PM [facility] Creatinine 0.58 0.55 - 1.02 mg/dL 11/18/2024 4:11 PM [facility] Calcium 8.9 8.5 - 10.1 mg/dL 11/18/2024 4:11 PM [facility] Total Protein 7.1 6.4 - 8.2 g/dL 11/18/2024 4:11 PM [facility] Albumin 3.8 3.4 - 5.0 g/dL 11/18/2024 4:11 PM [facility] Globulin 3.3 2.5 - 5.0 g/dL 11/18/2024 4:11 PM [facility] Total Bilirubin 0.6 0.2 - 1.0 mg/dL 11/18/2024 4:11 PM [facility] Comment:Use of this assay is not recommended for patients undergoing treatment with Eltrombopag due to the potential for falsely elevated results. Alkaline Phosphatase 78 45 - 117 U/L 11/18/2024 4:11 PM [facility] Alanine Aminotransferase (ALT) 29 12 - 78 U/L 11/18/2024 4:11 [facility] Aspartate Aminotransferase (AST) 22 15 - 37 U/L 11/18/2024 4:11 PM [facility] eGFR (Creatinine) >60 >=60 mL/min/1. 73m2 11/18/2024 4:11 PM [facility] Comment: [facility] utilizes CKD-EPI Creatinine 2020 to report eGFR. Values < 60 mL/min/1.73 m2 may indicate CKD if present for more than three months AND creatinine is at steady state. The eGFR provides a rough estimate of kidney function. For further guidance, please refer to the CKD: Adult Software Intern Signature pathway. Creatinine Delta 11/19/19 4:11 PM [facility] Comment:No previous creatini ne <5.00 mg/dL is available within the previous 12 months to calculate a delta creatinine. Blood Venipuncture / Unknown 11/18/2024 3:23 PM EDT 11/18/2024 3:29 PM EDT us Umesh [place]illan MD LAB [place]OD [place] [address], [facility] [phone] from Last 3 Months or Most Recently Relevant to Health Maintenance Insurance [employer] on file [employer] on file [employer] on file Care Teams Flyer Repairer Relationship Specialty Start Date End Date Benja Alicea MD [address] [place] [address] PCP - General Medical Oncology 11/18/24
--- OUTSIDE RECORDS SUMMARY | 2025-03-23 16:11 | XMS_ITS | Clinical Summary ---
Author Organization [facility] Address [address] [place] [address] Phone Care Team Providers Care Photostat Operator Helper Name Role Phone Ruby Alicea MD Primary Care Provider [phone] Surgical History Surgery Date Site/Laterality Comments BREAST CYST ASPIRATION Right Social History Tobacco Use Types Packs/Day Years Used Date Smoking Tobacco: Never Assessed Comments No Sex and Gender Information Value Date Recorded Sex Assigned at Not on file Legal Sex Female 5:53 PM EST Gender Identity Not on file Sexual Orientation Not on file Obstetrics History Para Term AB IAB SAB Ectopic Multiple Livin g Live Births 1 Last Filed Vital Signs Vital Sign Reading Time Taken Comments Blood Pressure - - Pulse - - Temperature - - Respiratory Rate - - Oxygen Saturation - - Inhaled Oxygen Concentration - - Weight 62.1 kg (137 lb) 06/05/2024 3:30 PM EST Height 160 cm (5' 3 ) 06/05/2024 3:30 PM EST Body Mass Index 24.27 06/05/2024 3:30 PM EST Plan of Treatment Health Maintenance Due Date Last Done Comments DTaP,Tdap,and Td Vaccines (1 - Tdap) 1978 Cervical Cancer Screening: Pap Smear 1980 Pneumococcal Vaccine: 50+ Years (1 of 1 - PCV) 2009 Zoster Vaccines (1 of 2) 2009 Cholesterol Screening (Lipid Panel) 05/30/2022 Colorectal Cancer Screening: Colonoscopy 05/30/2022 Hepatitis C Screening 05/30/2022 Social Influencers of Health Screening 05/30/2022 Falls Risk Assessment 2024 Hypertension/CHF/CAD Annual BMP Blood Test 06/06/2024 Depression Screening 06/28/2024 COVID-19 Vaccine ( season) 2025 05/15/2021, 09/04/2020, 08/07/2020 Influenza Vaccine (#1) 2025 03/28/2020 Breast Cancer Screening 06/05/2026 06/05/20 24, 05/25/2023, 04/10/2022, Additional history exists Osteoporosis Screening (Bone Density Screening) 01/02/2031 01/02/2021 RSV Immunization Adult Patients (1 - 1-dose 75+ series) 2034 HIB Vaccines Aged Out No longer eligi ble based on patient's age to complete this topic HPV Vaccines Aged Out No longer eligi ble based on patient's age to complete this topic Hepatitis A Vaccines Aged Out No long er eligible based on patient's age to complete this topic Hepatitis B Vaccines Aged Out No long er eligible based on patient's age to complete this topic IPV Vaccines Aged Out No longer eligi ble based on patient's age to complete this topic MMR Vaccines Aged Out No longer eligi ble based on patient's age to complete this topic Meningococcal ACWY Vaccine Aged Out N o longer eligible based on patient's age to complete this topic Meningococcal B Vaccine Aged Out No l onger eligible based on patient's age to complete this topic RSV Immunization Patients Under 20 months Aged Out No longer eligible based on patient's age to complete this topic Varicella Vaccines Aged Out No longer eligible based on patient's age to complete this topic Procedures Procedure Name Priority Date/Time Associated Diagnosis Comments MG MAMMO DIGITAL SCREENING W JOSE BILAT Routine 06/05/2024 3:34 PM EST Encounter for screening mammogram for breast cancer TRENT DEXA AXIAL SKELETON Routine 01/02/2021 2:52 PM EDT Other specified disorders of bone density and structure, multiple sites from Last 3 Months or Most Recently Relevant to Health Maintenance Results * MG Mammo Digital Screening w Jose bilat (06/05/2024 3:34 PM EST) Anatomical Region Laterality Modality Breast Bilateral Mammography 06/06/2024 10:2 4 AM EST Impressions 06/06/2024 10:29 AM EST No mammographic evidence of malignancy. No suspicious interval change. A negative mammogram in the presence of a clinically suspicious palpable abnormality does not preclude the possibility of malignancy or alter the indications for biopsy. ASSESSMENT: BI-RADS 1: NEGATIVE RECOMMENDATION(S): 1: Routine screening mammogram BILATERAL in 1 year. -------- FINAL REPORT -------- Dictated By: Devon Sethi Dictated Date: 06/06/2024 10:24 ET Assigned Physician: Devon Sethi Reviewed and Electronically Signed By: Devon Sethi Signed Date: 06/06/2024 10:29 ET Workstation ID: [id number] Transcribed By: Self Edit Transcribed Date: 06/06/2024 10:24 ET Narrative 06/06/2024 10:29 AM EST EXAM: SCREENING MAMMOGRAPHY, BILATERAL HISTORY: SCREENING. No additional history. COMPARISON: 05/25/2023, 04/09/2022, 01/02/2021 TECHNIQUE: Synthesized CC and MLO projections of each breast. Tomosynthesis of each breast in the CC and MLO projections. ADDITIONAL IMAGING: None Computer-aided detection was employed with the [employer] AI 3-D. TISSUE DENSITY: The breasts are heterogeneously dense, which may obscure small masses. (BI-RADS category C) FINDINGS: RIGHT BREAST: No suspicious mass. No suspicious calcification. No distortion. No additional suspicious right breast findings LEFT BREAST: No suspicious mass. No suspicious calcification. No distortion. No additional suspicious left breast findings Procedure Note Devon Sethi MD - 06/06/2024 EXAM: SCREENING MAMMOGRAPHY, BILATERAL HISTORY: SCREENING. No additional history. COMPARISON: 05/25/2023, 04/09/2022, 01/02/2021 TECHNIQUE: Synthesized CC and MLO projections of each breast.Tomosynthesis of each breast in the CC and MLO projections. ADDITIONAL IMAGING: None Computer-aided detection was employed with the [employer] AI 3-D. TISSUE DENSITY: The breasts are heterogeneously dense, which may obscuresmall masses. (BI-RADS category C) FINDINGS: RIGHT BREAST: No suspicious mass. No suspicious calcification. No distortion. Noadditional suspicious right breast findings LEFT BREAST: No suspicious mass. No suspicious calcification. No distortion. Noadditional suspicious left breast findings IMPRESSION: No mammographic evidence of malignancy. No suspicious interval change. A negative mammogram in the presence of a clinically suspicious palpableabnormality does not preclude the possibility of malignancy or alter theindications for biopsy. ASSESSMENT: BI-RADS 1: NEGATIVE RECOMMENDATION(S): 1: Routine screening mammogram BILATERAL in 1 year. -------- FINAL REPORT -------- Dictated By: Devon Sethi Dictated Date: 06/06/2024 10:24 ET Assigned Physician: Devon Sethi Reviewed and Electronically Signed By: Devon Sethi Signed Date: 06/06/2024 10:29 ET Workstation ID: [id number] Transcribed By: Self Edit Transcribed Date: 06/06/2024 10:24 ET us Self Referral Sppl IMG BI PROCEDURES Final Resul t * TRENT DEXA AXIAL SKELETON (01/02/2021 2:52 PM EDT) Anatomical Region Laterality Modality Mammography 01/02/2021 1:02 PM EDT Narrative 01/02/2021 2:52 PM EDT [facility] Diagnostic Imaging Department [address] [place] [id number] Patient: BERNARD DESOUZA Zbigniew Osorio/Age/Sex: 1960 - Unit#: [id number] Location/Status: SPDIMAM/REG CLI [facility] Ordering Physician: RUBY ALICEA MD Trent Dexa Axial Skeleton - 01/02/21 1327 HISTORY: The patient is a 60-year-old postmenopausal female with clinical concern for metabolic bone disease. FINDINGS: Dual energy x-ray absorptiometry of the lumbar spine and femurs is performed. The mean bone mineral density at L1-L4 is 1.168 gm/cm2 which is 99% of that of young normals and 113% of that of age matched controls. This yields a T-score of -0.1 and a Z-score of 1.1 and there is therefore no evidence of osteoporosis or osteopenia here. The mean bone mineral density of the femurs bilaterally is 0.952 gm/cm2 which is 95% of that of young normals and 107% of that of age matched controls. This yields a T-score of -0.4 and a Z-score of 0.5 and there is therefore no evidence of osteoporosis or osteopenia here. However, the T-score of the right femoral neck is -1.2 and that of the left femoral neck is -1.1 which is diagnostic of osteopenia. IMPRESSION: 1. Osteopenia. 2. FRAX analysis yields a 10-year probability of major osteoporotic fracture of 8.9% and a 10-year probability of hip fracture of 0.7%. Code 66832 Dictating Physician: TANIA ANDERSON MD Electronically Signed by: TANIA ANDERSON MD Dic Date/Time: 01/02/21 145 Sign date/Time: 01/02/21 145 Procedure Note Tania Anderson MD - 06/24/2022 [facility] Diagnostic Imaging Department [address] [place], [place] [id number] Patient: BERNARD DESOUZA /Age/Sex: 1960 - 60 - F Unit#: [id number] Location/Status: [facility]emonic[facility] Ordering Physician: RUBY ALICEA MD [facility] Dexa Axial Skeleton - 01/02/211326 HISTORY: The patient is a 60-year-old postmenopausal female withclinical concern for metabolic bone disease. FINDINGS: Dual energy x-ray absorptiometry of the lumbar spine and femursis performed. The mean bone mineral density at L1-L4 is 1.168 gm/cm2 which is99% of that of young normals and 113% of that of age matched controls. Thisyields a T-score of -0.1 and a Z-score of 1.1 and there is therefore no evidenceof osteoporosis or osteopenia here. The mean bone mineral density of the femurs bilaterally is 0.952 gm/qi9rsqtd is 95% of that of young normals and 107% of that of age matched controls.This yields a T-score of -0.4 and a Z-score of 0.5 and there is therefore noevidence of osteoporosis or osteopenia here. However, the T-score of the rightfemoral neck is -1.2 and that of the left femoral neck is -1.1 which is diagnosticof osteopenia. IMPRESSION: 1. Osteopenia. 2. FRAX analysis yields a 10-year probability of major osteoporoticfracture of 8.9% and a 10-year probability of hip fracture of 0.7%. Code 18391 Dictating Physician: TANIA ANDERSON MD Electronically Signed by: TANIA ANDERSON MD Dic Date/Time: 01/02/211451 Sign date/Time: 01/02/211451 us Ruby Alicea MD IMG BI PROCEDURES Final Result from Last 3 Months or Most Recently Relevant to [place] [id number] Care Teams Photostat Operator Helper Relationship Specialty Start Date End Date Ruby Alicea MD [address] [address] PCP - General Oncology 05/16/24
== END 2025-03-23 16:01 | disposition home or self-care (01) ==
LOC: HO.XRAY 16:00
PROVIDERS: PCP Internal Medicine Medical Oncology; Visit Provider Internal Medicine Medical Oncology
DX: R05.3 Chronic cough (principal)
CPT/HCPCS: 71046

== ENCOUNTER → 2025-03-23 16:17 | Outpatient (BNV) | payer OTHER, SELFPAY | PROVIDERS: PCP Internal Medicine Medical Oncology; Visit Provider Radiology Diagnostic Radiology | DX: R05.3 Chronic cough (principal) | CPT/HCPCS: 71046 ==